=== PATIENT | female | born 1950 | race Hispanic/Latino ===

== ENCOUNTER 2018-04-16 18:39 | Emergency (ER) | payer OTHER, SELFPAY ==
[~2018-04-16 18:39] MED LIST: Iopamidol 370 76% 100 ML VIAL ONE
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
[2018-04-16] MEDS ORDERED: Ibuprofen 800 MG TAB ONE (21:38)
[2018-04-16] MEDS ORDERED: HYDROcodone/Acetaminophen 5/325 mg Tablet ONE (21:38)
== END 2018-04-16 21:35 | disposition home or self-care (01) ==
LOC: MADERS 18:39
DX: S29.012A Strain of muscle and tendon of back wall of thorax, initial encounter (principal); I10 Essential (primary) hypertension; Z79.899 Other long term (current) drug therapy; V49.9XXA Car occupant (driver) (passenger) injured in unspecified traffic accident, initial encounter
CPT/HCPCS: 71260; Q9967